=== PATIENT | female | born 1950 | race Two or more races ===

== ENCOUNTER → 2018-09-18 | Day surgery (SDC) | payer OTHER ==
--- NOTE | 2018-09-20 17:51 | PATH ---
Cytology Non-Gynecological Report Patient Name: HUGO SANTORO [facility]. Rec. #: [id number] /Age/Gender: 1950 (Age: 68) / F Account: [id number] Location: RADIOLOGY INTER Taken: 09/18/2018 Received: 09/18/2018 Reported: 09/20/2018 Physicians: Ed Rao M.D. Specimen(s) Received RIGHT THYROID FNA Clinical History Right, 2.22 x 2.35 x 1.60 cm Final Diagnosis THYROID, RIGHT, FINE NEEDLE ASPIRATION: SATISFACTORY FOR EVALUATION. B[place] III: ATYPIA OF UNDERTERMINED SIGNIFICANCE/FOLLICULAR LESION OF UNDETERMINED SIGNIFICANCE. FRAGMENTS, SHEETS, AND CLUSTERS OF ATYPICAL FOLLICULAR CELLS WITH MILD NUCLEAR ENLARGEMENT, SUBTLE NUCLEAR GROOVES, AND FOCAL CROWDING ASSOCIATED WITH SCANT COLLOID AND NUMEROUS HEMOSIDERIN LADEN MACROPHAGES. Comment: Suggest clinical/radiologic correlation and repeat sampling after an appropriate interval (3-6 months) with consideration for material for molecular studies (Thyroseq), as clinically warranted. Electronically Signed Zoya Guadalupe M.D. Gross Description Received are eight direct smears, four of which are air-dried and Diff-Quik stained, and four of which are alcohol fixed and Pap stained. Also received is 20 ml of bloody formalin from which one cellblock is prepared.
== END | disposition home or self-care (01) ==
LOC: JRADIR 07:36
PROVIDERS: ATTEND Physician Assistant
PROC: 0G9K3ZX Drainage of Thyroid Gland, Percutaneous Approach, Diagnostic (ICD-10-PCS; principal; 2018-09-18)
DX: D44.0 Neoplasm of uncertain behavior of thyroid gland (principal)
CPT/HCPCS: 76942; 88173; 88305-TC